=== PATIENT | female | born 1990 | race Caucasian/White ===

== ENCOUNTER 2018-08-13 23:47 | Emergency (ER) | payer OTHER ==
[2018-08-14 00:09] VITALS: BP 142/86; PULSE 97; RESP 16; TEMP 98.2
--- NOTE | 2018-08-14 00:52 | ED ---
Extremity Problem HPI - General Source: patient Mode of arrival: ambulatory Limitations: no limitations <Agata Devries - Last Filed: 08/14/18 04:03> <Kendra Tirado - Last Filed: 08/14/18 06:07> - General Chief complaint: Extremity Problem,Nontraumatic Stated complaint: Leg Numbness Time Seen by Provider: 08/14/18 00:18 - History of Present Illness Initial comments: 27-year-old female patient presents to the emergency department today with complaints of "numbness" to the right lower leg. Patient states that the numbness extends from her knee down to her toes. Patient states it is circumferential. Patient denies any difficulty with ambulation. She denies any redness to the leg or pain to the leg. She denies any injury. Denies any difficulty with range of motion. States that she did have similar symptoms when she had an infection to the leg that required incision and drainage. She denies any areas of infection at this time. She denies any low back pain or saddle anesthesia. Patient states that she also has a rash around her eyes which she thinks may be caused by the "same thing" as the numbness to her leg, however reports that she has had this rash to her eyes on and off for the last 10 years. Patient states she did recently complete a prescription of Bactrim for acne to her face. 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 Patient denies any recent fever, chills, shortness breath, chest pain, abdominal pain, nausea, vomiting, diarrhea, constipation, back pain, dizziness, weakness, hematuria, dysuria, urinary urgency, urinary frequency, headache, visual changes, or any other complaints. (Agata Devries) - Related Data Previous Rx's Medication Instructions Recorded Permethrin 5% Cream [Elimite] 1 applic TOPICAL ONCE #1 cream..g. 08/14/18 Allergies Allergy/AdvReac Type Severity Reaction Status Date / Time No Known Allergies Allergy Verified 08/14/18 00:09 Review of Systems ROS Other: All systems not noted in ROS Statement are negative. <Agata Devries - Last Filed: 08/14/18 04:03> ROS Other: All systems not noted in ROS Statement are negative. <Kendra Tirado - Last Filed: 08/14/18 06:07> ROS Statement: Those systems with pertinent positive or pertinent negative responses have been documented in the HPI. Past Medical History Past Medical History: No Reported History History of Any Multi-Drug Resistant Organisms: None Reported Past Surgical History: No Surgical Hx Reported Past Psychological History: No Psychological Hx Reported Smoking Status: Current every day smoker Past Alcohol Use History: None Reported Past Drug Use History: None Reported <Agata Devries M - Last Filed: 08/14/18 04:03> General Exam Limitations: no limitations General appearance: alert, in no apparent distress, other (This is a well- developed, well-nourished adult female patient in no acute distress. Vital signs upon presentation are temperature 98.2F, pulse 97, respirations 16, blood pressure 142/86, pulse ox 100% on room air.) Eye exam: Present: normal appearance, PERRL, EOMI. Absent: scleral icterus, conjunctival injection, periorbital swelling ENT exam: Present: normal exam, normal oropharynx, mucous membranes moist Respiratory exam: Present: normal lung sounds bilaterally. Absent: respiratory distress, wheezes, rales, rhonchi, stridor Cardiovascular Exam: Present: regular rate, normal rhythm, normal heart sounds. Absent: systolic murmur, diastolic murmur, rubs, gallop, clicks Extremities exam: Present: normal inspection, full ROM, normal capillary refill , other (Skin to his lower extremities is pink, warm, and dry. Cap refills less than 3 seconds. Pedal and posttibial pulses are 2+ and equal bilaterally. Specifically with the right leg there is full range of motion, patient exhibits plantar and dorsiflexion with and without resistance. Patient has full flexion and extension of the knee. There is no erythema, swelling, or tenderness to the calf.). Absent: tenderness, pedal edema, joint swelling, calf tenderness Neurological exam: Present: alert, oriented X3, CN II-XII intact Psychiatric exam: Present: normal affect, normal mood Skin exam: Present: warm, dry, intact, normal color. Absent: rash <Agata Devries M - Last Filed: 08/14/18 04:03> Vital Signs 08/14/18 00:05 Temperature 98.2 F Pulse Rate 97 Respiratory 16 Rate Blood Pressure 142/86 O2 Sat by Pulse 100 Oximetry Medical Decision Making <Agata Devries - Last Filed: 08/14/18 04:03> <Kendra Tirado - Last Filed: 08/14/18 06:07> - Medical Decision Making 27-year-old female patient percents to the emergency department today for evaluation of numbness to the right lower extremity. Physical examination was unremarkable skin is pink, warm, and dry. Cap refills less than 3 seconds. Pedal and posttibial pulses 2+ and equal bilaterally. There is no skin lesion or evidence of infection. She has full range of motion with without resistance. Patient is neurologically intact. Patient does have rash to her hands and to her face she is concerned for scabies, we will give her prescription for Elimite for this. She is instructed to avoid face when using the elimite. She is instructed to follow-up with neurology for further evaluation and possible EMG. She is instructed to follow up with her primary care physician or elementary substitute teacher for recheck of the rash to her face and hands. Return parameters discussed in detail. She verbalizes understanding and agrees with this plan. (Agata Devries) She was seen and evaluated by the mid-level physician, we discussed the patient' s case, agree with the mid-level's assessment and plan. After discharge the patient walked to triage and asked to be reevaluated by a second provider. Patient returned to her room. I entered the room, patient anxious standing in the corner. Patient has multiple skin rashes including dry plaque a rash around both of her eyes which appears chronic in nature, excoriations on bilateral hands. Patient expressing concern that her leg has dark spots and became numb. Patient reports numbness from the knee down. Believes it started 2 days ago but is getting worse. Has normal sensation to touch but reports that it still feels different. Extremity is warm and well perfused, there is no obvious skin rash, patient does have excoriations on her hands does have a history of scabies is concerned that she's been reexposed. The patient has multiple complaints, significant anxiety, no acute physical exam findings. Patient concerned she may be developing an infection in her leg because she has had one in the past requiring I&D and packing. At this time there is no signs of infection. I will prescribe the patient permethrin cream for possible scabies exposure and plan to discharge home. Patient has been seen by her OB dermatology in the past and will follow up with them as well as her primary care. (Kendra Tirado) Disposition Is patient prescribed a controlled substance at d/c from ED?: No Time of Disposition: 00:52 <Agata Devries - Last Filed: 08/14/18 04:03> <Kendra Tirado - Last Filed: 08/14/18 06:07> Clinical Impression: Paresthesia of right lower extremity, Rash of hands Disposition: HOME SELF-CARE Condition: Good Instructions: Acute Rash (ED), Paresthesia (ED) Additional Instructions: Follow up with neurology for further evaluation, discuss possible EMG. Follow up with dermatology and your primary care physician. Return immediately for any new, worsening, or concerning symptom. Prescriptions: Permethrin 5% Cream [Elimite] 1 applic TOPICAL ONCE #1 cream..g. Referrals: Jake Burroughs DO [Primary Care Provider] - 1-2 days
== END 2018-08-14 01:33 | disposition home or self-care (01) ==
LOC: EC 23:47
DX: R20.2 Paresthesia of skin (principal); R21 Rash and other nonspecific skin eruption; R20.0 Anesthesia of skin; F41.9 Anxiety disorder, unspecified; F17.200 Nicotine dependence, unspecified, uncomplicated
CPT/HCPCS: 99283